=== PATIENT | female | born 1965 | race Caucasian/White ===

== ENCOUNTER 2016-11-09 11:18 | Outpatient (RCR) | payer MEDICAID, OTHER ==
[2016-10-26 11:14] LABS: BASOPHILS # (AUTO) 0.1 10^3/uL (0.0-0.1); BASOPHILS % (AUTO) 1 % (0-10); EOSINOPHILS # (AUTO) 0.5 10^3/uL (0.0-0.3); EOSINOPHILS % (AUTO) 4 % (0-10); LYMPHOCYTES # (AUTO) 4.3 X 10^3 (1.0-4.0); LYMPHOCYTES % (AUTO) 38 % (12-44); MEAN CORPUSCULAR HEMOGLOBIN 31 PG (25-34); MEAN CORPUSCULAR HGB CONC 34 G/DL (32-36); MEAN CORPUSCULAR VOLUME 93 FL (80-99); MEAN PLATELET VOLUME 10.8 FL (7.4-10.4); MONOCYTES # (AUTO) 0.5 X 10^3 (0.0-1.0); MONOCYTES % (AUTO) 5 % (0-12); NEUTROPHILS % (AUTO) 53 % (42-75); PLATELET COUNT 228 10^3/uL (130-400); RED CELL DISTRIBUTION WIDTH 13.2 % (10.0-14.5); WHITE BLOOD COUNT 11.3 10^3/uL (4.3-11.0)
[2016-10-26 11:42] LABS: ALANINE AMINOTRANSFERASE 18 U/L (0-55); ALBUMIN 4.6 G/DL (3.2-4.5); ANION GAP 12 MMOL/L (5-14); ASPARTATE AMINO TRANSFERASE 16 U/L (5-34); BILIRUBIN,TOTAL 0.4 MG/DL (0.1-1.0); BLOOD UREA NITROGEN 12 MG/DL (7-18); BUN/CREATININE RATIO 14; CALCIUM 9.1 MG/DL (8.5-10.1); CARBON DIOXIDE 23 MMOL/L (21-32); CHLORIDE 105 MMOL/L (98-107); CREATININE SERUM 0.86 MG/DL (0.60-1.30); GFR ESTIMATED > 60; GLUCOSE 100 MG/DL (70-105); SODIUM 140 MMOL/L (135-145); TOTAL PROTEIN 7.1 G/DL (6.4-8.2)
[~2016-11-09 11:18] MED LIST: ASPI-999 PO; ATEN50TA PO; ATOR10TA66 PO; CANA100T PO; CYCL5TAB PO; FENT1PAT60 TD; FURO20TA4 PO; GABA-486 PO; LEVO25TA5 PO; METF500T4 PO; OXYC-188 PO; ROPI0.25 PO; SENN-120 PO; TRAZ-28 PO; VENL37.52 PO
[2016-11-09 11:25] LABS: BASOPHILS # (AUTO) 0.1 10^3/uL (0.0-0.1); BASOPHILS % (AUTO) 1 % (0-10); EOSINOPHILS # (AUTO) 0.4 10^3/uL (0.0-0.3); EOSINOPHILS % (AUTO) 4 % (0-10); LYMPHOCYTES # (AUTO) 4.5 X 10^3 (1.0-4.0); LYMPHOCYTES % (AUTO) 42 % (12-44); MEAN CORPUSCULAR HEMOGLOBIN 31 PG (25-34); MEAN CORPUSCULAR HGB CONC 34 G/DL (32-36); MEAN CORPUSCULAR VOLUME 93 FL (80-99); MONOCYTES # (AUTO) 0.7 X 10^3 (0.0-1.0); MONOCYTES % (AUTO) 6 % (0-12); NEUTROPHILS # (AUTO) 5.1 X 10^3 (1.8-7.8); NEUTROPHILS % (AUTO) 47 % (42-75); PLATELET COUNT 250 10^3/uL (130-400); RED BLOOD COUNT 5.03 10^6/uL (4.35-5.85); WHITE BLOOD COUNT 10.7 10^3/uL (4.3-11.0)
[2016-11-09 12:46] LABS: ALANINE AMINOTRANSFERASE 17 U/L (0-55); ALBUMIN 4.5 G/DL (3.2-4.5); ANION GAP 10 MMOL/L (5-14); ASPARTATE AMINO TRANSFERASE 18 U/L (5-34); BILIRUBIN,TOTAL 0.4 MG/DL (0.1-1.0); BLOOD UREA NITROGEN 12 MG/DL (7-18); BUN/CREATININE RATIO 14; CALCIUM 9.1 MG/DL (8.5-10.1); CARBON DIOXIDE 27 MMOL/L (21-32); CHLORIDE 104 MMOL/L (98-107); CREATININE SERUM 0.86 MG/DL (0.60-1.30); GFR ESTIMATED > 60; GLUCOSE 91 MG/DL (70-105); LACTATE DEHYDROGENASE 150 U/L (125-220); POTASSIUM 3.8 MMOL/L (3.6-5.0); SODIUM 141 MMOL/L (135-145); TOTAL PROTEIN 7.1 G/DL (6.4-8.2)
[2016-11-09 13:07] LABS: THYROID STIMULATING HORMONE 2.36 UIU/ML (0.35-4.94)
[2017-01-11 09:52] LABS: MP RPT # MP-17-0000762
== END 2017-01-24 | disposition home or self-care (01) ==
LOC: ONC 11:18
PROVIDERS: ATTEND Internal Medicine Hematology & Oncology
DX: D72.820 Lymphocytosis (symptomatic) (principal); E11.42 Type 2 diabetes mellitus with diabetic polyneuropathy; G89.29 Other chronic pain; E03.9 Hypothyroidism, unspecified; F32.9 Major depressive disorder, single episode, unspecified; M19.90 Unspecified osteoarthritis, unspecified site; M54.2 Cervicalgia; E78.5 Hyperlipidemia, unspecified
CPT/HCPCS: 36415; 80053; 82232; 83615; 84439; 84443; 85025; 99213; 99214

== ENCOUNTER → 2017-04-11 | Outpatient (CLI) | payer OTHER ==
--- NOTE | 2017-04-11 10:22 | Diagnostic Imaging Report ---
EXAMINATION: Upper and lower extremity pressure measurements of ankle/brachial index and pulse volume recording at the ankle. INDICATION: Claudication FINDINGS: The ankle/brachial index on the right side is 1.2, (1.0 DP, and 1.2 PT) and on the left is 1.3 (0.9 DP, and 1.3 PT). Pulse volume recording waveforms appear normal. IMPRESSION: Normal MADELINE, bilaterally. Dictated by: Dictated on workstation # [id number]
== END ==
LOC: RAD 08:53
PROVIDERS: ATTEND Family Medicine
DX: E11.42 Type 2 diabetes mellitus with diabetic polyneuropathy (principal); R09.89 Other specified symptoms and signs involving the circulatory and respiratory systems
CPT/HCPCS: 93922

== ENCOUNTER → 2017-06-24 | Outpatient (CLI) | payer OTHER ==
[~2017-06-24] MED LIST changes: +CATHETER FLUSH 10 ML SYR IV PRN; +IOHEXOL 350 MG/ML 100 ML (OMNIPAQUE 350) VIAL IV ONE; +NS 100 ML (IVPB) BAG IV ONE
--- NOTE | 2017-06-24 12:28 | Diagnostic Imaging Report ---
PROCEDURE: CT head with and without contrast. TECHNIQUE: Multiple contiguous axial images were obtained through the brain before and after the administration of intravenous contrast. INDICATION: Dizziness. 60 mL of Omnipaque 350 is administered intravenously. FINDINGS: The unenhanced phase demonstrates no intracranial hemorrhage, edema or mass effect. No hydrocephalus. No extra-axial fluid collection is seen. There is no enhancing mass identified. The calvarium, the paranasal sinuses and orbits appear grossly unremarkable. IMPRESSION: No intracranial hemorrhage. No enhancing mass. Dictated by: Dictated on workstation # [id number]
== END ==
LOC: RAD 11:25
PROVIDERS: ATTEND Family Medicine
DX: R42 Dizziness and giddiness (principal)
CPT/HCPCS: 70470

== ENCOUNTER → 2017-07-08 | Outpatient (CLI) | payer OTHER ==
[~2017-07-08] MED LIST changes: -CATHETER FLUSH 10 ML SYR IV PRN; +GADOBUTROL 10 MMOL/10 ML (GADAVIST) VIAL IV ONE; -IOHEXOL 350 MG/ML 100 ML (OMNIPAQUE 350) VIAL IV ONE; -NS 100 ML (IVPB) BAG IV ONE
--- NOTE | 2017-07-08 13:01 | Diagnostic Imaging Report ---
PROCEDURE: MR imaging of the brain with and without contrast. TECHNIQUE: Multiplanar, multisequence MR imaging of the brain was performed with and without contrast. INDICATION: Ataxia. FINDINGS: There is no diffusion restriction to suggest an acute infarct or other diffusion abnormality. The brain parenchyma demonstrate no significant kelly or white matter signal abnormality. No evidence of a demyelinating process, brain edema or enhancing mass. The cerebellum and the brainstem appear unremarkable. The central vascular flow-voids appear unremarkable. The pituitary gland is normal in size. No hypothalamic or pineal region mass. The lateral ventricles are not enlarged. There is no extra-axial fluid collection or mass seen. The internal auditory canals and inner ear structures appear grossly unremarkable. The orbits and paranasal sinuses appear grossly unremarkable. IMPRESSION: Unremarkable exam. Dictated on workstation # [id number]
== END ==
LOC: RAD 08:43
PROVIDERS: ATTEND Family Medicine
DX: R27.0 Ataxia, unspecified (principal)
CPT/HCPCS: 70553

== ENCOUNTER → 2018-09-15 | Outpatient (CLI) | payer MEDICAID ==
[~2018-09-15] MED LIST changes: -GADOBUTROL 10 MMOL/10 ML (GADAVIST) VIAL IV ONE; +METF-397 PO; -METF500T4 PO; -ROPI0.25 PO; +ROPI0.253 PO; +TRAZ-189 PO; -TRAZ-28 PO
--- NOTE | 2018-09-15 12:28 | Diagnostic Imaging Report ---
PROCEDURE: MRI left joint lower extremity without contrast. TECHNIQUE: Multiplanar, multisequence [id number] MRI of the left lower extremity was accomplished. INDICATION: Knee pain. COMPARISON: There are no prior studies available for comparison. FINDINGS: On the sagittal proton dense fat-saturated series, there is an area of abnormal signal along the inferior articular surface of the anterior horn of the medial meniscus. This would be consistent with a tear. There is also some abnormal signal involving the posterior horn of the medial meniscus, and I suspect that this portion of the meniscus is torn as well. The lateral meniscus is intact. The anterior and posterior cruciate ligaments, the quadriceps and infrapatellar tendons, the medial collateral and fibular collateral ligaments, the biceps femoris tendon, the iliotibial band, and the medial and lateral retinacula are intact. There is no abnormal signal arising from the osseous structures to suggest bone edema or a fracture. However, on the T2 axial series, there is a prominent area of increased signal in the subarticular region of the medial aspect of the mid body of the patella. This is of uncertain etiology but could be secondary to mild bone edema, perhaps from a recent contusion. This does not have the typical appearance for chondromalacia patella, but that possibility should be considered. There is only mild degenerative disease involving the medial and lateral compartments. There is a small amount of fluid within the knee joint. There is no sign of a Cruz's cyst. IMPRESSION: 1. Both the anterior and posterior horns of the medial meniscus are torn. 2. The lateral meniscus and the major ligaments and tendons are intact. 3. The area of altered signal involving the medial aspect of the patella is of uncertain etiology. This could be related to bone edema perhaps from recent trauma. Clinical followup is recommended. 4. There is only mild degenerative disease involving the knee joint. Dictated by: Dictated on workstation # [id number]
== END ==
LOC: RAD 10:51
PROVIDERS: ATTEND Family Medicine
DX: S83.241A Other tear of medial meniscus, current injury, right knee, initial encounter (principal); M17.12 Unilateral primary osteoarthritis, left knee
CPT/HCPCS: 73721

== ENCOUNTER 2019-01-09 06:20 | Outpatient (CLI) | payer MEDICAID ==
[~2019-01-09] VITALS: Ht 175.3 cm; Wt 86.2 kg
[~2019-01-09 06:20] MED LIST changes: -SENN-120 PO; +SENN-233 PO
[2019-01-09] MEDS ORDERED: CYCL10TA9 PO (13:08)
[2019-01-09] MEDS ORDERED: MELA10TA3 PO (13:08)
[2019-01-09] MEDS ORDERED: MELO15TA39 PO (13:08)
[2019-01-09] MEDS ORDERED: VORT20TA PO (13:08)
[2019-01-09] MEDS ORDERED: TRAZ-190 PO (13:08)
[2019-01-09] MEDS ORDERED: FURO40TA4 PO (13:08)
[2019-01-09] MEDS ORDERED: ROPI1TAB2 PO (13:08)
[2019-01-09] MEDS ORDERED: ATOR40TA70 PO (13:08)
[2019-01-09] MEDS ORDERED: LEVO112T55 PO (13:08)
[2019-01-09] MEDS ORDERED: GBPN600T PO (13:08)
[2019-01-09] MEDS ORDERED: CRAN1CAP2 PO (13:08)
== END 2019-01-09 13:13 | disposition home or self-care (01) ==
LOC: PREOP 06:20
PROVIDERS: ATTEND Surgery
DX: Z01.818 Encounter for other preprocedural examination (principal)

== ENCOUNTER 2019-01-16 07:31 | Day surgery (SDC) | payer MEDICAID, OTHER ==
[~2019-01-16] VITALS: Ht 175.3 cm; Wt 86.2 kg
[~2019-01-16 07:31] MED LIST changes: +ATOR40TA70 PO; +CRAN1CAP2 PO; +CYCL10TA9 PO; +FURO40TA4 PO; +GBPN600T PO; +LEVO112T55 PO; +MELA10TA3 PO; +MELO15TA39 PO; +ROPI1TAB2 PO; +TRAZ-190 PO; +VORT20TA PO
[2019-01-16] MEDS ORDERED: LACTATED RINGERS 1,000 ML IV ONE (07:34)
[2019-01-16] MEDS ORDERED: LACTATED RINGERS 1,000 ML IV STA (07:40)
[2019-01-16] MEDS ORDERED: MIDAZOLAM 2 MG/2 ML (VERSED) VIAL ONE (07:48)
[2019-01-16] MEDS ORDERED: PROPOFOL INJECTION 50 ML IV ONE (07:48)
[2019-01-16 07:55] VITALS: BP 107/76
--- NOTE | 2019-01-16 08:00 | Progress Note-Pre Operative ---
Pre-Operative Progress Note H&P Reviewed The H&P was reviewed, patient examined and no changes noted. Date Seen by Provider: Jan 16, 2019 Time Seen by Provider: 08:00 Date H&P Reviewed: Jan 16, 2019 Time H&P Reviewed: 08:00 Pre-Operative Diagnosis: chronic constipation, change in bowels, history of polyps JASPER RODRIGUEZ DO Jan 16, 2019 08:00
[2019-01-16] MEDS ORDERED: LIDOCAINE PF 2% 5 ML (XYLOCAINE) VIAL ONE (08:33)
--- NOTE | 2019-01-16 09:22 | Progress Note-Post Operative ---
Post-Operative Progess Note Surgeon (s)/Hand Flatwork Finisher (s) Surgeon JASPER RODRIGUEZ DO Hand Flatwork Finisher: na Pre-Operative Diagnosis chronic constipation, change in bowels, history of polyps Post-Operative Diagnosis normal colon Procedure & Operative Findings Date of Procedure 01/16/19 Procedure Performed/Findings colonoscopy Anesthesia Type per rn eligibility Estimated Blood Loss Estimated blood loss (mL): none Specimens/Packing Specimens Removed na JASPER RODRIGUEZ DO Jan 16, 2019 09:22
--- NOTE | 2019-01-16 09:24 | Discharge Inst-Simple/Standard ---
Discharge Inst-Standard Patient Instructions/Follow Up Plan of Care/Instructions/FU: Follow up Dr. Acevedo as needed. Nee repeat colonoscopy in 5 years any issues before that be seen at that time. Activity as Tolerated: Yes Discharge Diet: Regular Diet (high fiber) JASPER ACEVEDO DO Jan 16, 2019 09:24
[2019-01-16 09:30] VITALS: BP 94/59
[2019-01-16 10:00] VITALS: BP 99/67
[2019-01-16 10:10] VITALS: BP 99/67
--- NOTE | 2019-01-16 11:22 | Anesthesia-General Post-Op ---
MAC Patient Condition Mental Status/LOC: Same as Preop Cardiovascular: Satisfactory Nausea/Vomiting: Absent Respiratory: Satisfactory Pain: Controlled Complications: Absent Post Op Complications Complications None Follow Up Care/Instructions Patient Instructions None needed. Anesthesiology Discharge Order Discharge Order Patient is doing well, no complaints, stable vital signs, no apparent adverse anesthesia problems. No complications reported per nursing. BRYN DEJESUS CRNA Jan 16, 2019 11:22
--- NOTE | 2019-01-16 11:51 | OPERATIVE REPORT ---
DATE OF SERVICE: 01/16/2019 PREOPERATIVE DIAGNOSES: Change in bowel habits, chronic constipation and history of polyps. POSTOPERATIVE DIAGNOSIS: Normal colon. PROCEDURE: Colonoscopy. SURGEON: Jasper Acevedo DO. ANESTHESIA: Per LEATHER COATER. ESTIMATED BLOOD LOSS: None. COMPLICATIONS: None. INDICATIONS: The patient is a 53-year-old female with history of colon polyps. She had a change in her bowel habits and chronic constipation. She understands the risks and benefits of procedure and wished to proceed with procedure. Consent was signed in the chart. PROCEDURE: The patient was taken to the endoscopy suite and placed in the left lateral recumbent position. Timeout was performed. A digital rectal exam was performed. There were no palpable polyps, masses or ulcerations. The scope was inserted in the rectum and advanced all the way to the cecum with minimal difficulty. The prep was adequate with irrigation and suction. Scope was then slowly retracted back. No polyps, masses or ulcerations within the cecum, ascending, transverse, descending and sigmoid colon. Once in the rectum, the scope was retroflexed noting no other pathology. Scope was returned to its normal position and slowly withdrawn until completely removed. The patient tolerated the procedure well without any complications. She was taken to the recovery room in stable condition. RECOMMENDATIONS: The patient was recommended high fiber diet. The patient is to have a repeat colonoscopy in 5 years. If she has any issues before that and will be seen at that time. Job ID: [id number] DocumentID: [id number] Dictated Date: 01/16/2019 09:26:12 Insole Rasper Date: 01/16/2019 11:50:53 Dictated By: JASPER ACEVEDO DO
== END 2019-01-16 10:10 | disposition home or self-care (01) ==
LOC: ENDO 07:31
PROVIDERS: ATTEND Surgery
DX: K59.09 Other constipation (principal); Z86.010 Personal history of colon polyps; E11.42 Type 2 diabetes mellitus with diabetic polyneuropathy; F17.210 Nicotine dependence, cigarettes, uncomplicated; E03.9 Hypothyroidism, unspecified; E78.00 Pure hypercholesterolemia, unspecified; Z79.82 Long term (current) use of aspirin; Z79.84 Long term (current) use of oral hypoglycemic drugs; Z79.899 Other long term (current) drug therapy
CPT/HCPCS: 82962